=== PATIENT | female | born 1950 | race Caucasian/White ===

== ENCOUNTER 2016-06-25 11:56 | Emergency (ER) | payer MEDICARE, MEDICAID ==
[~2016-06-25] VITALS: Ht 170.2 cm; Wt 98.0 kg
[~2016-06-25 11:56] MED LIST: AMLO-512 PO; GABA-533 PO; INSLAN SQ; LEVO100 PO; LUBI24CA2 PO; OMEP10CA2; VIT D PO
[2016-06-25] MEDS ORDERED: INSU100V12 SQ (12:10)
[2016-06-25] MEDS ORDERED: INSNOV SQ (12:10)
[2016-06-25] MEDS ORDERED: IBUPROFEN 600 MG TABLET PO ONE ×2 (12:30→15:15)
[2016-06-25] MEDS ORDERED: ACETAMINOPHEN 325 MG TABLET PO ONE ×2 (12:30→15:15)
[2016-06-25 14:26] VITALS: BP 154/83
== END 2016-06-25 15:26 | disposition home or self-care (01) ==
LOC: EMS 11:59
DX: S13.4XXA Sprain of ligaments of cervical spine, initial encounter (principal); E11.9 Type 2 diabetes mellitus without complications; E78.00 Pure hypercholesterolemia, unspecified; I10 Essential (primary) hypertension; Z79.4 Long term (current) use of insulin; Y04.2XXA Assault by strike against or bumped into by another person, initial encounter; Y93.89 Activity, other specified; Y92.89 Other specified places as the place of occurrence of the external cause; Y99.8 Other external cause status
CPT/HCPCS: 72040; 82962; 99284

== ENCOUNTER 2016-08-06 14:53 | Inpatient (IN) | payer MEDICARE, MEDICAID ==
[~2016-08-06] VITALS: Ht 170.2 cm; Wt 95.3 kg
[~2016-08-06 14:53] MED LIST changes: -GABA-533 PO; -INSLAN SQ; +INSNOV SQ; +INSU100V12 SQ; -LEVO100 PO; -LUBI24CA2 PO; -OMEP10CA2; -VIT D PO
[2016-08-06 15:17] LABS: GLUCOSE,POINT OF CARE 213 MG/DL (70-110)
[2016-08-06 15:32] LABS: BASOPHILS % (AUTO) 0.3 % (0.0-2.0); EOSINOPHILS % (AUTO) 1.8 % (1.0-6.0); HEMATOCRIT 41.3 % (36-46); HEMOGLOBIN 13.1 g/dL (12.0-16.0); LYMPHOCYTES # (AUTO) 1.6 K/uL (1.0-4.8); LYMPHOCYTES % (AUTO) 26.4 % (22.0-44.0); MEAN CORPUSCULAR HEMOGLOBIN 25.4 pg (26.0-34.0); MEAN CORPUSCULAR HGB CONC 31.8 G/dL (31.0-37.0); MEAN CORPUSCULAR VOLUME 80 fL (80-100); MONOCYTES # (AUTO) 0.3 K/uL (0.1-1.0); MONOCYTES % (AUTO) 4.8 % (2.0-9.0); NEUTROPHILS % (AUTO) 66.7 % (40.0-70.0); PLATELET COUNT (AUTO) 216 K/uL (150-450); RED BLOOD CELL COUNT(AUTO) 5.17 MIL/uL (4.00-5.20); RED CELL DISTRIBUTION WIDTH 15.8 % (11.5-14.5)
[2016-08-06 15:51] LABS: ANION GAP 10 mmol/L (8-16); CARBON DIOXIDE 29 mmol/L (22-29); CHLORIDE 101 mmol/L (98-107); CREATININE 0.78 mg/dL (0.60-1.30); GLOMERULAR FILTR. RATE CALC > 60 mL/min (>60); SODIUM SERUM 140 mmol/L (136-145); UREA NITROGEN, BLOOD 12 mg/dL (7-18)
[2016-08-06 16:00] LABS: ALANINE AMINOTRANSFERASE 29 U/L (12-78); ALBUMIN 3.9 g/dL (3.4-5.0); ASPARTATE AMINOTRANSFERASE 19 U/L (15-37); BILIRUBIN,TOTAL 0.3 mg/dL (0.1-1.0); TOTAL PROTEIN, SERUM 8.3 g/dL (6.4-8.2)
[2016-08-06] MEDS ORDERED: INSULIN REGULAR, HUMAN 100 UNITS/ML SQ ONE (16:15)
[2016-08-06] MEDS ORDERED: PERMETHRIN 5% 60 GM CREAM TP ONE (16:15)
[2016-08-06] MEDS ORDERED: LORazepam 2 MG TABLET PO PRN (17:15)
[2016-08-06] MEDS ORDERED: HALOPERIDOL 5 MG TABLET PO PRN (17:15)
[2016-08-06 19:26] VITALS: BP 135/73
[2016-08-06] MEDS ORDERED: DEXTROSE 50%-WATER 25 GM/50 ML SYRINGE IVP PRN (20:45)
[2016-08-06 20:52] LABS: GLUCOSE COMMENT 1 Received Meds; GLUCOSE,POINT OF CARE 330 MG/DL (70-110)
[2016-08-06] MEDS: INSULIN ASPART 100 UNITS/ML SQ PRN (20:53)
[2016-08-06] MEDS ORDERED: INSULIN DETEMIR 100 UNITS/ML SQ SCH (21:00)
[2016-08-07 05:44] VITALS: BP 128/78
[2016-08-07 05:56] LABS: GLUCOSE COMMENT 1 Received Meds; GLUCOSE,POINT OF CARE 222 MG/DL (70-110)
[2016-08-07 06:50] LABS: CHOL/HDL RATIO 4.4 (3.9-5.7)
[2016-08-07] MEDS: INSULIN ASPART 100 UNITS/ML SQ PRN ×4 (07:25→20:33)
[2016-08-07 08:00] VITALS: BP 129/74
[2016-08-07] MEDS ORDERED: BACITRACIN 28.4 GM OINTMENT TP PRN (08:15)
[2016-08-07] MEDS ORDERED: MAG HYDROX/AL HYDROX/SIMETH ES 30 ML SUSPENSION UDCUP PO PRN (08:15)
[2016-08-07] MEDS ORDERED: IBUPROFEN 600 MG TABLET PO PRN (08:15)
[2016-08-07] MEDS ORDERED: ONDANSETRON HCL 4 MG TABLET PO PRN (08:15)
[2016-08-07] MEDS ORDERED: MAGNESIUM HYDROXIDE SUSPENSION 30 ML UDCUP PO PRN (08:15)
[2016-08-07] MEDS ORDERED: BENZOCAINE/MENTHOL LOZENGE [8 LOZENGES/PACKET] MM PRN (08:15)
[2016-08-07] MEDS ORDERED: CloNIDine HCL 0.1 MG TABLET PO PRN (08:15)
[2016-08-07] MEDS ORDERED: LOPERAMIDE HCL 2 MG CAPSULE PO PRN (08:15)
[2016-08-07] MEDS ORDERED: PETROLATUM,WHITE 71 GM JELLY TP PRN (08:15)
[2016-08-07] MEDS ORDERED: ALBUTEROL SULFATE HFA 90 MCG/PUFF 8 GM INHALER IH PRN (08:15)
[2016-08-07] MEDS: OMEPRAZOLE 20 MG CAPSULE PO SCH (08:31)
[2016-08-07] MEDS: AmLODIPine BESYLATE 10 MG TABLET PO SCH (08:31)
[2016-08-07] MEDS: DOCUSATE SODIUM 100 MG CAPSULE PO SCH (08:31)
[2016-08-07 11:21] LABS: GLUCOSE,POINT OF CARE 286 MG/DL (70-110)
[2016-08-07] MEDS: ESCITALOPRAM OXALATE 10 MG TABLET PO SCH (12:37)
[2016-08-07 16:52] LABS: GLUCOSE COMMENT 1 Received Meds; GLUCOSE,POINT OF CARE 247 MG/DL (70-110)
[2016-08-07 17:20] VITALS: BP 128/67
[2016-08-07] MEDS: SIMVASTATIN 10 MG TABLET PO SCH (20:18)
[2016-08-07] MEDS: INSULIN DETEMIR 100 UNITS/ML SQ SCH (20:23)
[2016-08-07 20:32] LABS: GLUCOSE,POINT OF CARE 338 MG/DL (70-110)
[2016-08-08 06:52] LABS: GLUCOSE,POINT OF CARE 214 MG/DL (70-110)
[2016-08-08 07:15] VITALS: BP 108/65
[2016-08-08] MEDS: INSULIN ASPART 100 UNITS/ML SQ PRN ×4 (07:19→20:35)
[2016-08-08] MEDS: OMEPRAZOLE 20 MG CAPSULE PO SCH (08:57)
[2016-08-08] MEDS: AmLODIPine BESYLATE 10 MG TABLET PO SCH (08:57)
[2016-08-08] MEDS: ESCITALOPRAM OXALATE 10 MG TABLET PO SCH (08:57)
[2016-08-08] MEDS: DOCUSATE SODIUM 100 MG CAPSULE PO SCH (08:58)
[2016-08-08 10:03] VITALS: BP 120/74
[2016-08-08 11:17] LABS: GLUCOSE,POINT OF CARE 275 MG/DL (70-110)
[2016-08-08 17:07] LABS: GLUCOSE COMMENT 1 Received Meds; GLUCOSE,POINT OF CARE 244 MG/DL (70-110)
[2016-08-08 17:20] VITALS: BP 127/70
[2016-08-08] MEDS: SIMVASTATIN 10 MG TABLET PO SCH (20:21)
[2016-08-08] MEDS: ACETAMINOPHEN 325 MG TABLET PO PRN (20:24)
[2016-08-08 20:27] LABS: GLUCOSE,POINT OF CARE 369 MG/DL (70-110)
[2016-08-08] MEDS: INSULIN DETEMIR 100 UNITS/ML SQ SCH (20:34)
[2016-08-09 05:37] LABS: GLUCOSE COMMENT 1 Received Meds; GLUCOSE,POINT OF CARE 226 MG/DL (70-110)
[2016-08-09] MEDS: AmLODIPine BESYLATE 10 MG TABLET PO SCH (08:09)
[2016-08-09] MEDS: DOCUSATE SODIUM 100 MG CAPSULE PO SCH (08:09)
[2016-08-09] MEDS: OMEPRAZOLE 20 MG CAPSULE PO SCH (08:10)
[2016-08-09] MEDS: ESCITALOPRAM OXALATE 10 MG TABLET PO SCH (08:10)
[2016-08-09 10:20] VITALS: BP 134/86
[2016-08-09 11:46] LABS: GLUCOSE COMMENT 1 Received Meds; GLUCOSE,POINT OF CARE 315 MG/DL (70-110)
[2016-08-09] MEDS: INSULIN ASPART 100 UNITS/ML SQ PRN ×3 (11:57→20:40)
[2016-08-09 18:41] LABS: GLUCOSE,POINT OF CARE 335 MG/DL (70-110)
[2016-08-09 19:32] VITALS: BP 107/68
[2016-08-09] MEDS: SIMVASTATIN 10 MG TABLET PO SCH (20:25)
[2016-08-09] MEDS: INSULIN DETEMIR 100 UNITS/ML SQ SCH (20:39)
[2016-08-09 21:12] LABS: GLUCOSE COMMENT 1 Received Meds; GLUCOSE,POINT OF CARE 309 MG/DL (70-110)
[2016-08-10 05:32] LABS: GLUCOSE,POINT OF CARE 195 MG/DL (70-110)
[2016-08-10] MEDS: INSULIN ASPART 100 UNITS/ML SQ PRN ×4 (06:57→21:03)
[2016-08-10 08:00] VITALS: BP 118/68
[2016-08-10] MEDS: ESCITALOPRAM OXALATE 10 MG TABLET PO SCH (08:18)
[2016-08-10] MEDS: DOCUSATE SODIUM 100 MG CAPSULE PO SCH (08:18)
[2016-08-10] MEDS: OMEPRAZOLE 20 MG CAPSULE PO SCH (08:18)
[2016-08-10] MEDS: AmLODIPine BESYLATE 10 MG TABLET PO SCH (08:18)
[2016-08-10 11:22] LABS: GLUCOSE COMMENT 1 Received Meds; GLUCOSE,POINT OF CARE 360 MG/DL (70-110)
[2016-08-10 16:42] LABS: GLUCOSE,POINT OF CARE 268 MG/DL (70-110)
[2016-08-10] MEDS: SIMVASTATIN 10 MG TABLET PO SCH (20:13)
[2016-08-10 20:25] VITALS: BP 146/73
[2016-08-10 20:43] LABS: GLUCOSE COMMENT 1 Received Meds; GLUCOSE,POINT OF CARE 288 MG/DL (70-110)
[2016-08-10] MEDS: INSULIN DETEMIR 100 UNITS/ML SQ SCH (21:02)
[2016-08-11 01:30] VITALS: BP 103/70
[2016-08-11 05:57] LABS: GLUCOSE,POINT OF CARE 192 MG/DL (70-110)
[2016-08-11] MEDS: INSULIN ASPART 100 UNITS/ML SQ PRN ×4 (06:47→21:16)
[2016-08-11 08:00] VITALS: BP 108/56
[2016-08-11] MEDS: OMEPRAZOLE 20 MG CAPSULE PO SCH (08:18)
[2016-08-11] MEDS: DOCUSATE SODIUM 100 MG CAPSULE PO SCH (08:18)
[2016-08-11] MEDS: ESCITALOPRAM OXALATE 10 MG TABLET PO SCH (08:18)
[2016-08-11] MEDS: AmLODIPine BESYLATE 10 MG TABLET PO SCH (08:18)
[2016-08-11 11:12] LABS: GLUCOSE COMMENT 1 Received Meds; GLUCOSE,POINT OF CARE 292 MG/DL (70-110)
[2016-08-11 16:46] LABS: GLUCOSE COMMENT 1 Received Meds; GLUCOSE,POINT OF CARE 239 MG/DL (70-110)
[2016-08-11] MEDS: SIMVASTATIN 10 MG TABLET PO SCH (20:18)
[2016-08-11 20:30] VITALS: BP 105/58
[2016-08-11 20:37] LABS: GLUCOSE COMMENT 1 Received Meds; GLUCOSE,POINT OF CARE 259 MG/DL (70-110)
[2016-08-11] MEDS: ACETAMINOPHEN 325 MG TABLET PO PRN (20:51)
[2016-08-11] MEDS: INSULIN DETEMIR 100 UNITS/ML SQ SCH (21:15)
[2016-08-12 05:22] LABS: GLUCOSE,POINT OF CARE 252 MG/DL (70-110)
[2016-08-12] MEDS: INSULIN ASPART 100 UNITS/ML SQ PRN ×5 (06:43→20:57)
[2016-08-12] MEDS: DOCUSATE SODIUM 100 MG CAPSULE PO SCH (08:50)
[2016-08-12] MEDS: OMEPRAZOLE 20 MG CAPSULE PO SCH (08:50)
[2016-08-12] MEDS: AmLODIPine BESYLATE 10 MG TABLET PO SCH (08:50)
[2016-08-12] MEDS: SIMVASTATIN 10 MG TABLET PO SCH ×2 (08:51→20:46)
[2016-08-12] MEDS: ESCITALOPRAM OXALATE 10 MG TABLET PO SCH (08:51)
[2016-08-12 11:57] LABS: GLUCOSE COMMENT 1 Received Meds; GLUCOSE,POINT OF CARE 215 MG/DL (70-110)
[2016-08-12 13:23] VITALS: BP 136/76
[2016-08-12 16:32] LABS: GLUCOSE COMMENT 1 Received Meds; GLUCOSE,POINT OF CARE 281 MG/DL (70-110)
[2016-08-12 17:05] VITALS: BP 134/75
[2016-08-12 20:52] LABS: GLUCOSE COMMENT 1 Received Meds; GLUCOSE,POINT OF CARE 264 MG/DL (70-110)
[2016-08-12 21:00] VITALS: BP 132/75
[2016-08-12] MEDS ORDERED: INSULIN DETEMIR 100 UNITS/ML SQ SCH (21:00)
[2016-08-12] MEDS: ACETAMINOPHEN 325 MG TABLET PO PRN (21:03)
[2016-08-13 05:53] LABS: GLUCOSE COMMENT 1 Received Meds; GLUCOSE,POINT OF CARE 225 MG/DL (70-110)
[2016-08-13] MEDS: INSULIN ASPART 100 UNITS/ML SQ PRN ×4 (06:49→21:25)
[2016-08-13 08:10] VITALS: BP 125/73
[2016-08-13] MEDS: LISINOPRIL 5 MG TABLET PO SCH (08:56)
[2016-08-13] MEDS: ESCITALOPRAM OXALATE 10 MG TABLET PO SCH (08:56)
[2016-08-13] MEDS: DOCUSATE SODIUM 100 MG CAPSULE PO SCH (08:56)
[2016-08-13] MEDS: OMEPRAZOLE 20 MG CAPSULE PO SCH (08:56)
[2016-08-13 12:36] LABS: GLUCOSE,POINT OF CARE 336 MG/DL (70-110)
[2016-08-13] MEDS: ACETAMINOPHEN 325 MG TABLET PO PRN ×2 (15:49→21:30)
[2016-08-13 16:00] VITALS: BP 135/79
[2016-08-13 17:23] LABS: GLUCOSE COMMENT 1 Received Meds; GLUCOSE,POINT OF CARE 243 MG/DL (70-110)
[2016-08-13 20:30] VITALS: BP 128/78
[2016-08-13] MEDS: SIMVASTATIN 10 MG TABLET PO SCH (20:52)
[2016-08-13] MEDS ORDERED: INSULIN DETEMIR 100 UNITS/ML SQ SCH (21:00)
[2016-08-13 21:12] LABS: GLUCOSE COMMENT 1 Received Meds; GLUCOSE,POINT OF CARE 308 MG/DL (70-110)
[2016-08-14] MEDS: ZOLPIDEM TARTRATE 10 MG TABLET PO PRN (00:40)
[2016-08-14 00:57] VITALS: BP 116/72
[2016-08-14 05:52] LABS: GLUCOSE,POINT OF CARE 231 MG/DL (70-110)
[2016-08-14] MEDS: INSULIN ASPART 100 UNITS/ML SQ PRN ×4 (06:50→21:06)
[2016-08-14 07:39] LABS: CHOL/HDL RATIO 3.6 (3.9-5.7); CREATINE KINASE, TOTAL 34 U/L (26-192)
[2016-08-14 08:11] LABS: HEMOGLOBIN A1C 7.3 % (4.5-6.2)
[2016-08-14] MEDS: DOCUSATE SODIUM 100 MG CAPSULE PO SCH (08:25)
[2016-08-14] MEDS: OMEPRAZOLE 20 MG CAPSULE PO SCH (08:25)
[2016-08-14] MEDS: LISINOPRIL 5 MG TABLET PO SCH (08:25)
[2016-08-14] MEDS: ESCITALOPRAM OXALATE 10 MG TABLET PO SCH (08:25)
[2016-08-14 08:30] VITALS: BP 123/66
[2016-08-14 11:11] LABS: GLUCOSE,POINT OF CARE 256 MG/DL (70-110)
[2016-08-14] MEDS: ACETAMINOPHEN 325 MG TABLET PO PRN (16:31)
[2016-08-14 16:32] VITALS: BP 119/66
[2016-08-14 16:57] LABS: GLUCOSE COMMENT 1 Received Meds; GLUCOSE,POINT OF CARE 231 MG/DL (70-110)
[2016-08-14] MEDS: SIMVASTATIN 10 MG TABLET PO SCH (20:13)
[2016-08-14 20:52] LABS: GLUCOSE COMMENT 1 Received Meds; GLUCOSE,POINT OF CARE 300 MG/DL (70-110)
[2016-08-14] MEDS: INSULIN DETEMIR 100 UNITS/ML SQ SCH (21:05)
[2016-08-15 05:52] LABS: GLUCOSE,POINT OF CARE 141 MG/DL (70-110)
[2016-08-15] MEDS: INSULIN ASPART 100 UNITS/ML SQ PRN ×4 (06:49→20:46)
[2016-08-15 08:30] VITALS: BP 118/60
[2016-08-15] MEDS: DOCUSATE SODIUM 100 MG CAPSULE PO SCH (08:42)
[2016-08-15] MEDS: OMEPRAZOLE 20 MG CAPSULE PO SCH (08:42)
[2016-08-15] MEDS: ESCITALOPRAM OXALATE 10 MG TABLET PO SCH (08:42)
[2016-08-15] MEDS: LISINOPRIL 5 MG TABLET PO SCH (08:43)
[2016-08-15 11:06] LABS: GLUCOSE,POINT OF CARE 242 MG/DL (70-110)
[2016-08-15] MEDS ORDERED: ESCI10TA PO (13:32)
[2016-08-15] MEDS ORDERED: DSS100 PO (13:39)
[2016-08-15] MEDS ORDERED: LISI-660 PO (13:39)
[2016-08-15] MEDS ORDERED: SIMV-259 PO (13:44)
[2016-08-15] MEDS ORDERED: OMEP20 PO (13:44)
[2016-08-15 14:18] LABS: HEPATITIS Bs ANTIGEN SCREEN P Negative (Negative); HEPATITIS C AB SCREEN <0.1 s/co ratio (0.0-0.9)
[2016-08-15] MEDS ORDERED: METF500T4 PO (15:31)
[2016-08-15] MEDS: ACETAMINOPHEN 325 MG TABLET PO PRN (16:36)
[2016-08-15] MEDS: MetFORMIN HCL 500 MG TABLET PO SCH (16:36)
[2016-08-15 16:49] VITALS: BP 129/99
[2016-08-15 17:27] LABS: GLUCOSE,POINT OF CARE 297 MG/DL (70-110)
[2016-08-15] MEDS: SIMVASTATIN 10 MG TABLET PO SCH (20:20)
[2016-08-15 20:37] LABS: GLUCOSE COMMENT 1 Received Meds; GLUCOSE,POINT OF CARE 362 MG/DL (70-110)
[2016-08-15] MEDS: INSULIN DETEMIR 100 UNITS/ML SQ SCH (20:45)
[2016-08-15] MEDS: ZOLPIDEM TARTRATE 10 MG TABLET PO PRN (21:33)
[2016-08-16 06:07] LABS: GLUCOSE,POINT OF CARE 152 MG/DL (70-110)
[2016-08-16] MEDS: INSULIN ASPART 100 UNITS/ML SQ PRN (06:58)
[2016-08-16] MEDS: MetFORMIN HCL 500 MG TABLET PO SCH (06:58)
[2016-08-16 08:16] VITALS: BP 119/71
[2016-08-16] MEDS: DOCUSATE SODIUM 100 MG CAPSULE PO SCH (08:19)
[2016-08-16] MEDS: OMEPRAZOLE 20 MG CAPSULE PO SCH (08:19)
[2016-08-16] MEDS: ESCITALOPRAM OXALATE 10 MG TABLET PO SCH (08:19)
[2016-08-16] MEDS: LISINOPRIL 5 MG TABLET PO SCH (09:03)
== END 2016-08-16 10:30 | disposition home or self-care (01) | DRG 885 ==
LOC: EMS 14:56 → 3EX 18:20
DX: F33.2 Major depressive disorder, recurrent severe without psychotic features (principal); R45.851 Suicidal ideations; I10 Essential (primary) hypertension; E78.5 Hyperlipidemia, unspecified; E11.65 Type 2 diabetes mellitus with hyperglycemia; E78.00 Pure hypercholesterolemia, unspecified; E11.40 Type 2 diabetes mellitus with diabetic neuropathy, unspecified; M19.90 Unspecified osteoarthritis, unspecified site; F42.9 Obsessive-compulsive disorder, unspecified; E66.9 Obesity, unspecified; K21.9 Gastro-esophageal reflux disease without esophagitis; G47.00 Insomnia, unspecified; I95.9 Hypotension, unspecified; Z79.4 Long term (current) use of insulin; Z79.899 Other long term (current) drug therapy; Z85.819 Personal history of malignant neoplasm of unspecified site of lip, oral cavity, and pharynx; Z87.42 Personal history of other diseases of the female genital tract; Z98.51 Tubal ligation status; Z91.5 Personal history of self-harm; Z90.49 Acquired absence of other specified parts of digestive tract; Z68.34 Body mass index [BMI] 34.0-34.9, adult; Z83.3 Family history of diabetes mellitus; Z82.49 Family history of ischemic heart disease and other diseases of the circulatory system; Z81.1 Family history of alcohol abuse and dependence
CPT/HCPCS: 80074; 82306; 82607; 82746; 82962; 83036; 83735; 84439; 96372; 99285; G0480; J1815

== ENCOUNTER 2016-08-22 10:30 | Emergency (ER) | payer MEDICARE, MEDICAID ==
[~2016-08-22] VITALS: Ht 170.2 cm; Wt 95.5 kg
[~2016-08-22 10:30] MED LIST changes: -AMLO-512 PO; +DSS100 PO; +ESCI10TA PO; -INSNOV SQ; +LISI-660 PO; +METF500T4 PO; +OMEP20 PO; +SIMV-259 PO
[2016-08-22] MEDS ORDERED: METO25 PO (10:59)
[2016-08-22] MEDS ORDERED: ACET500C4 PO (10:59)
[2016-08-22] MEDS ORDERED: INSNOV SQ (10:59)
[2016-08-22] MEDS ORDERED: LEVO100 PO (10:59)
[2016-08-22] MEDS ORDERED: AMLO-512 PO (10:59)
[2016-08-22] MEDS ORDERED: ASPI-1093 PO (10:59)
[2016-08-22] MEDS ORDERED: PREG50 PO (10:59)
[2016-08-22] MEDS ORDERED: LUBI24CA2 PO (10:59)
[2016-08-22] MEDS ORDERED: KETOROLAC TROMETHAMINE 60 MG/2 ML VIAL IM ONE (11:45)
[2016-08-22] MEDS ORDERED: ACETAMINOPHEN 500 MG TABLET PO ONE (11:45)
[2016-08-22] MEDS ORDERED: CIPROFLOXACIN HCL 250 MG TABLET PO ONE (12:00)
[2016-08-22 12:15] VITALS: BP 137/76
== END 2016-08-22 12:30 | disposition home or self-care (01) ==
LOC: EMS 10:33
DX: S80.02XA Contusion of left knee, initial encounter (principal); S50.02XA Contusion of left elbow, initial encounter; N39.0 Urinary tract infection, site not specified; I10 Essential (primary) hypertension; E78.00 Pure hypercholesterolemia, unspecified; E11.9 Type 2 diabetes mellitus without complications; Z79.4 Long term (current) use of insulin; Z79.82 Long term (current) use of aspirin; W18.39XA Other fall on same level, initial encounter; Y93.89 Activity, other specified; Y92.89 Other specified places as the place of occurrence of the external cause; Y99.8 Other external cause status
CPT/HCPCS: 82962; 96372; 99283; J1885

== ENCOUNTER 2017-06-22 17:23 | Inpatient (IN) | payer MEDICARE, MEDICAID ==
[~2017-06-22] VITALS: Ht 170.2 cm; Wt 100.4 kg
[~2017-06-22 17:23] MED LIST changes: +ACET500C4 PO; +AMLO-512 PO; +ASPI-1182 PO; +INSNOV SQ; +LEVO100 PO; +LUBI24CA2 PO; +METO25 PO; +PREG50 PO
[2017-06-22 18:54] LABS: BASOPHILS % (AUTO) 0.3 % (0.0-2.0); EOSINOPHILS % (AUTO) 1.6 % (1.0-6.0); HEMATOCRIT 36.9 % (36-46); HEMOGLOBIN 12.2 g/dL (12.0-16.0); LYMPHOCYTES # (AUTO) 1.2 K/uL (1.0-4.8); LYMPHOCYTES % (AUTO) 21.8 % (22.0-44.0); MEAN CORPUSCULAR HEMOGLOBIN 26.4 pg (26.0-34.0); MEAN CORPUSCULAR HGB CONC 33.1 G/dL (31.0-37.0); MEAN CORPUSCULAR VOLUME 80 fL (80-100); MONOCYTES # (AUTO) 0.3 K/uL (0.1-1.0); MONOCYTES % (AUTO) 6.2 % (2.0-9.0); NEUTROPHILS # (AUTO) 3.9 K/uL (1.8-7.7); NEUTROPHILS % (AUTO) 70.1 % (40.0-70.0); PLATELET COUNT (AUTO) 171 K/uL (150-450); RED BLOOD CELL COUNT(AUTO) 4.63 MIL/uL (4.00-5.20); RED CELL DISTRIBUTION WIDTH 16.8 % (11.5-14.5)
[2017-06-22 19:02] LABS: ANION GAP 7 mmol/L (8-16); CARBON DIOXIDE 27 mmol/L (22-29); CHLORIDE 100 mmol/L (98-107); CREATININE 0.78 mg/dL (0.60-1.30); GLOMERULAR FILTR. RATE CALC > 60 mL/min (>60); GLUCOSE,RANDOM 392 mg/dL (70-110); SODIUM SERUM 134 mmol/L (136-145); UREA NITROGEN, BLOOD 8 mg/dL (7-18)
[2017-06-22 19:10] LABS: ALANINE AMINOTRANSFERASE 25 U/L (12-78); ALBUMIN 3.7 g/dL (3.4-5.0); ALKALINE PHOSPHATASE 102 U/L (46-116); ASPARTATE AMINOTRANSFERASE 19 U/L (15-37); BILIRUBIN,TOTAL 0.4 mg/dL (0.1-1.0); TOTAL PROTEIN, SERUM 7.8 g/dL (6.4-8.2)
[2017-06-22] MEDS ORDERED: RISP1 PO (19:30)
[2017-06-22 19:47] LABS: GLUCOSE,POINT OF CARE 357 MG/DL (70-110)
[2017-06-22] MEDS ORDERED: QUEtiapine FUMARATE 25 MG TABLET PO PRN (20:00)
[2017-06-22] MEDS ORDERED: LORazepam 0.5 MG TABLET PO PRN (20:00)
[2017-06-22] MEDS ORDERED: ZOLPIDEM TARTRATE 10 MG TABLET PO PRN (20:00)
[2017-06-22] MEDS ORDERED: INSULIN REGULAR, HUMAN 100 UNITS/ML SQ ONE (20:15)
[2017-06-22] MEDS ORDERED: GuaiFENesin/D-METHORPHAN/PHENYLEPH 5 ML LIQUID ORAL.SYG PO ONE (20:45)
[2017-06-22 20:48] LABS: AMPHET/METH SCREEN,URINE NEGATIVE (NEGATIVE); BARBITURATE SCREEN, URINE NEGATIVE (NEGATIVE); BENZODIAZEPINES SCREEN,URINE NEGATIVE (NEGATIVE); CANNABINOID SCREEN,URINE NEGATIVE (NEGATIVE); COCAINE SCREEN,URINE NEGATIVE (NEGATIVE); METHADONE SCREEN, URINE NEGATIVE (NEGATIVE); OPIATE SCREEN,URINE NEGATIVE (NEGATIVE)
[2017-06-22 20:49] LABS: PHENCYCLIDINE SCREEN,URINE NEGATIVE (NEGATIVE)
[2017-06-22 21:37] LABS: GLUCOSE,POINT OF CARE 257 MG/DL (70-110)
[2017-06-22 22:16] VITALS: BP 130/78
[2017-06-22] MEDS ORDERED: PETROLATUM,WHITE 71 GM JELLY TP PRN (23:15)
[2017-06-22] MEDS ORDERED: DEXTROSE 50%-WATER 25 GM/50 ML SYRINGE IVP PRN (23:15)
[2017-06-22] MEDS ORDERED: BACITRACIN 28.4 GM OINTMENT TP PRN (23:15)
[2017-06-22] MEDS ORDERED: ACETAMINOPHEN 325 MG TABLET PO PRN (23:15)
[2017-06-22] MEDS ORDERED: LOPERAMIDE HCL 2 MG CAPSULE PO PRN (23:15)
[2017-06-22] MEDS ORDERED: ALBUTEROL SULFATE HFA 90 MCG/PUFF 8 GM INHALER IH PRN (23:15)
[2017-06-22] MEDS ORDERED: MAGNESIUM HYDROXIDE SUSPENSION 30 ML UDCUP PO PRN (23:15)
[2017-06-22] MEDS ORDERED: CloNIDine HCL 0.1 MG TABLET PO PRN (23:15)
[2017-06-22] MEDS ORDERED: ONDANSETRON HCL 4 MG TABLET PO PRN (23:15)
[2017-06-22] MEDS ORDERED: MAG HYDROX/AL HYDROX/SIMETH ES 30 ML SUSPENSION UDCUP PO PRN (23:15)
[2017-06-22] MEDS ORDERED: BENZOCAINE/MENTHOL LOZENGE [8 LOZENGES/PACKET] MM PRN (23:30)
[2017-06-23 03:15] VITALS: BP 95/65
[2017-06-23 05:37] LABS: GLUCOMETER DEV NAME(LOC) 3EI B; GLUCOSE,POINT OF CARE 233 MG/DL (70-110)
[2017-06-23 05:38] VITALS: BP 127/85
[2017-06-23] MEDS: IBUPROFEN 600 MG TABLET PO PRN ×2 (05:45→16:31)
[2017-06-23 05:56] VITALS: BP 127/85
[2017-06-23 06:01] LABS: BASOPHILS % (AUTO) 0.3 % (0.0-2.0); EOSINOPHILS % (AUTO) 1.9 % (1.0-6.0); HEMATOCRIT 36.5 % (36-46); HEMOGLOBIN 12.2 g/dL (12.0-16.0); LYMPHOCYTES # (AUTO) 1.1 K/uL (1.0-4.8); MEAN CORPUSCULAR HEMOGLOBIN 26.4 pg (26.0-34.0); MEAN CORPUSCULAR HGB CONC 33.5 G/dL (31.0-37.0); MEAN CORPUSCULAR VOLUME 79 fL (80-100); MONOCYTES # (AUTO) 0.3 K/uL (0.1-1.0); MONOCYTES % (AUTO) 6.4 % (2.0-9.0); NEUTROPHILS # (AUTO) 3.6 K/uL (1.8-7.7); NEUTROPHILS % (AUTO) 69.4 % (40.0-70.0); PLATELET COUNT (AUTO) 160 K/uL (150-450); RED BLOOD CELL COUNT(AUTO) 4.62 MIL/uL (4.00-5.20); RED CELL DISTRIBUTION WIDTH 16.8 % (11.5-14.5)
[2017-06-23 06:34] LABS: ALANINE AMINOTRANSFERASE 21 U/L (12-78); ALBUMIN 3.4 g/dL (3.4-5.0); ALKALINE PHOSPHATASE 95 U/L (46-116); ANION GAP 6 mmol/L (8-16); ASPARTATE AMINOTRANSFERASE 20 U/L (15-37); BILIRUBIN,TOTAL 0.4 mg/dL (0.1-1.0); CARBON DIOXIDE 30 mmol/L (22-29); CHLORIDE 103 mmol/L (98-107); CHOL/HDL RATIO 4.6 (3.9-5.7); CHOLESTEROL 189 mg/dL (131-200); CREATININE 0.53 mg/dL (0.60-1.30); FREE T4 (FREE THYROXINE) 0.59 ng/dL (0.76-1.46); GLOMERULAR FILTR. RATE CALC > 60 mL/min (>60); GLUCOSE,RANDOM 257 mg/dL (70-110); HDL CHOLESTEROL 41 mg/dL (40-60); LDL CHOL (CALC.) 127 mg/dL (0-130); POTASSIUM 4.3 mmol/L (3.5-5.1); SODIUM SERUM 139 mmol/L (136-145); TOTAL PROTEIN, SERUM 7.4 g/dL (6.4-8.2); TRIGLYCERIDES 106 mg/dL (15-150); UREA NITROGEN, BLOOD 8 mg/dL (7-18)
[2017-06-23] MEDS: INSULIN LISPRO 100 UNITS/ML SQ PRN ×4 (06:44→20:38)
[2017-06-23] MEDS: MetFORMIN HCL 500 MG TABLET PO SCH ×2 (07:11→17:33)
[2017-06-23 07:58] LABS: HEMOGLOBIN A1C 8.8 % (4.5-6.2)
[2017-06-23] MEDS: DOCUSATE SODIUM 100 MG CAPSULE PO SCH (08:17)
[2017-06-23 08:20] VITALS: BP 159/84
[2017-06-23] MEDS: OMEPRAZOLE 20 MG CAPSULE PO SCH (08:20)
[2017-06-23] MEDS: LISINOPRIL 5 MG TABLET PO SCH (08:23)
[2017-06-23] MEDS ORDERED: INSULIN GLARGINE,HUM.REC.ANLOG 100 UNITS/ML SQ SCH (09:00)
[2017-06-23] MEDS ORDERED: OMEPRAZOLE 20 MG CAPSULE PO SCH (09:00)
[2017-06-23 09:18] LABS: GLUCOMETER DEV NAME(LOC) 3EX 1; GLUCOSE,POINT OF CARE 310 MG/DL (70-110)
[2017-06-23] MEDS: INSULIN GLARGINE,HUM.REC.ANLOG 100 UNITS/ML SQ SCH ×2 (10:07→20:37)
[2017-06-23] MEDS: LEVOTHYROXINE SODIUM 100 MCG TABLET PO SCH (10:14)
[2017-06-23 12:13] LABS: GLUCOMETER DEV NAME(LOC) 3EX 1; GLUCOSE,POINT OF CARE 243 MG/DL (70-110)
[2017-06-23 16:27] LABS: GLUCOMETER DEV NAME(LOC) 3EX 1; GLUCOSE,POINT OF CARE 235 MG/DL (70-110)
[2017-06-23 16:31] VITALS: BP 149/79
[2017-06-23 17:31] VITALS: BP 148/82
[2017-06-23] MEDS: SIMVASTATIN 10 MG TABLET PO SCH (20:09)
[2017-06-23 20:12] LABS: GLUCOMETER DEV NAME(LOC) 3EX 1; GLUCOSE,POINT OF CARE 248 MG/DL (70-110)
[2017-06-24 06:02] LABS: GLUCOMETER DEV NAME(LOC) 3EI B; GLUCOSE,POINT OF CARE 222 MG/DL (70-110)
[2017-06-24] MEDS: LEVOTHYROXINE SODIUM 100 MCG TABLET PO SCH (07:03)
[2017-06-24] MEDS: MetFORMIN HCL 500 MG TABLET PO SCH ×2 (07:03→17:25)
[2017-06-24] MEDS: INSULIN LISPRO 100 UNITS/ML SQ PRN ×3 (07:04→21:32)
[2017-06-24 07:06] VITALS: BP 141/81
[2017-06-24] MEDS: LISINOPRIL 5 MG TABLET PO SCH (08:33)
[2017-06-24] MEDS: OMEPRAZOLE 20 MG CAPSULE PO SCH (08:33)
[2017-06-24] MEDS: DOCUSATE SODIUM 100 MG CAPSULE PO SCH (08:33)
[2017-06-24] MEDS: INSULIN GLARGINE,HUM.REC.ANLOG 100 UNITS/ML SQ SCH ×2 (08:34→21:31)
[2017-06-24 09:35] VITALS: BP 120/70
[2017-06-24] MEDS: IBUPROFEN 600 MG TABLET PO PRN (09:35)
[2017-06-24 10:35] VITALS: BP 115/75
[2017-06-24 12:08] LABS: GLUCOMETER DEV NAME(LOC) 3EX 1; GLUCOSE,POINT OF CARE 279 MG/DL (70-110)
[2017-06-24 16:13] LABS: GLUCOMETER DEV NAME(LOC) 3EX 1; GLUCOSE,POINT OF CARE 123 MG/DL (70-110)
[2017-06-24 16:32] VITALS: BP 135/93
[2017-06-24] MEDS: SIMVASTATIN 10 MG TABLET PO SCH (21:31)
[2017-06-24 21:32] LABS: GLUCOMETER DEV NAME(LOC) 3EX 1; GLUCOSE,POINT OF CARE 149 MG/DL (70-110)
[2017-06-25 06:07] LABS: GLUCOMETER DEV NAME(LOC) 3EI B; GLUCOSE,POINT OF CARE 158 MG/DL (70-110)
[2017-06-25] MEDS: LEVOTHYROXINE SODIUM 100 MCG TABLET PO SCH (07:08)
[2017-06-25] MEDS: MetFORMIN HCL 500 MG TABLET PO SCH ×2 (07:08→17:01)
[2017-06-25] MEDS: INSULIN LISPRO 100 UNITS/ML SQ PRN ×3 (07:10→21:11)
[2017-06-25] MEDS: OMEPRAZOLE 20 MG CAPSULE PO SCH (08:21)
[2017-06-25] MEDS: DOCUSATE SODIUM 100 MG CAPSULE PO SCH (08:21)
[2017-06-25] MEDS: LISINOPRIL 5 MG TABLET PO SCH (08:21)
[2017-06-25] MEDS: FLUoxetine HCL 10 MG CAPSULE PO SCH (08:21)
[2017-06-25] MEDS: INSULIN GLARGINE,HUM.REC.ANLOG 100 UNITS/ML SQ SCH ×2 (08:40→21:11)
[2017-06-25 10:03] VITALS: BP 116/68
[2017-06-25 11:48] LABS: GLUCOMETER DEV NAME(LOC) 3EX 1; GLUCOSE,POINT OF CARE 131 MG/DL (70-110)
[2017-06-25] MEDS: IBUPROFEN 600 MG TABLET PO PRN ×2 (13:03→19:27)
[2017-06-25 13:04] VITALS: BP 120/83
[2017-06-25 16:27] LABS: GLUCOMETER DEV NAME(LOC) 3EX 1; GLUCOSE,POINT OF CARE 171 MG/DL (70-110)
[2017-06-25 18:07] VITALS: BP 153/79
[2017-06-25 19:27] VITALS: BP 154/94
[2017-06-25 20:27] VITALS: BP 138/78
[2017-06-25] MEDS: SIMVASTATIN 10 MG TABLET PO SCH (20:46)
[2017-06-25] MEDS: ARIPiprazole 5 MG TABLET PO SCH (20:46)
[2017-06-25 20:57] LABS: GLUCOMETER DEV NAME(LOC) 3EX 1; GLUCOSE,POINT OF CARE 228 MG/DL (70-110)
[2017-06-26 05:37] LABS: GLUCOMETER DEV NAME(LOC) 3EI B; GLUCOSE,POINT OF CARE 209 MG/DL (70-110)
[2017-06-26] MEDS: LEVOTHYROXINE SODIUM 100 MCG TABLET PO SCH (07:09)
[2017-06-26] MEDS: MetFORMIN HCL 500 MG TABLET PO SCH ×2 (07:10→17:11)
[2017-06-26] MEDS: INSULIN LISPRO 100 UNITS/ML SQ PRN ×4 (07:16→20:25)
[2017-06-26] MEDS: DOCUSATE SODIUM 100 MG CAPSULE PO SCH (08:46)
[2017-06-26] MEDS: FLUoxetine HCL 10 MG CAPSULE PO SCH (08:46)
[2017-06-26] MEDS: OMEPRAZOLE 20 MG CAPSULE PO SCH (08:46)
[2017-06-26] MEDS: LISINOPRIL 5 MG TABLET PO SCH (08:47)
[2017-06-26 09:00] VITALS: BP 126/75
[2017-06-26 10:03] LABS: GLUCOMETER DEV NAME(LOC) 3EX 1; GLUCOSE,POINT OF CARE 255 MG/DL (70-110)
[2017-06-26] MEDS: INSULIN GLARGINE,HUM.REC.ANLOG 100 UNITS/ML SQ SCH ×2 (10:04→20:22)
[2017-06-26 11:43] LABS: GLUCOMETER DEV NAME(LOC) 3EX 1; GLUCOSE,POINT OF CARE 252 MG/DL (70-110)
[2017-06-26 17:32] VITALS: BP 135/70
[2017-06-26] MEDS: IBUPROFEN 600 MG TABLET PO PRN (17:34)
[2017-06-26] MEDS: ARIPiprazole 5 MG TABLET PO SCH (20:09)
[2017-06-26] MEDS: SIMVASTATIN 10 MG TABLET PO SCH (20:09)
[2017-06-26 21:02] LABS: GLUCOMETER DEV NAME(LOC) 3EX 1; GLUCOSE,POINT OF CARE 208 MG/DL (70-110)
[2017-06-26 21:02] LABS: GLUCOMETER DEV NAME(LOC) 3EX 1; GLUCOSE,POINT OF CARE 212 MG/DL (70-110)
[2017-06-27 05:28] LABS: GLUCOMETER DEV NAME(LOC) 3EI B; GLUCOSE,POINT OF CARE 151 MG/DL (70-110)
[2017-06-27] MEDS: INSULIN LISPRO 100 UNITS/ML SQ PRN ×2 (07:10→12:01)
[2017-06-27] MEDS: LEVOTHYROXINE SODIUM 100 MCG TABLET PO SCH (07:12)
[2017-06-27] MEDS: IBUPROFEN 600 MG TABLET PO PRN (07:17)
[2017-06-27] MEDS: MetFORMIN HCL 500 MG TABLET PO SCH (07:17)
[2017-06-27 09:00] VITALS: BP 116/88
[2017-06-27] MEDS: OMEPRAZOLE 20 MG CAPSULE PO SCH (09:21)
[2017-06-27] MEDS: LISINOPRIL 5 MG TABLET PO SCH (09:22)
[2017-06-27] MEDS: DOCUSATE SODIUM 100 MG CAPSULE PO SCH (09:22)
[2017-06-27] MEDS: FLUoxetine HCL 10 MG CAPSULE PO SCH (09:22)
[2017-06-27 09:48] LABS: GLUCOMETER DEV NAME(LOC) 3EX 1; GLUCOSE,POINT OF CARE 234 MG/DL (70-110)
[2017-06-27] MEDS: INSULIN GLARGINE,HUM.REC.ANLOG 100 UNITS/ML SQ SCH (09:51)
[2017-06-27] MEDS ORDERED: ARIP5TAB8 PO (11:18)
[2017-06-27] MEDS ORDERED: DSS100 PO (11:32)
[2017-06-27] MEDS ORDERED: PROZ10 PO (11:32)
[2017-06-27] MEDS ORDERED: INSLAN SQ (11:32)
[2017-06-27 11:48] LABS: GLUCOMETER DEV NAME(LOC) 3EX 1; GLUCOSE,POINT OF CARE 145 MG/DL (70-110)
== END 2017-06-27 15:00 | disposition home or self-care (01) | DRG 885 ==
LOC: EMS 17:24 → 3EX 21:30
PROVIDERS: ADMIT Psychiatry & Neurology Psychiatry; ATTEND Psychiatry & Neurology Psychiatry
DX: F25.0 Schizoaffective disorder, bipolar type (principal); E11.40 Type 2 diabetes mellitus with diabetic neuropathy, unspecified; R45.851 Suicidal ideations; E11.65 Type 2 diabetes mellitus with hyperglycemia; E03.9 Hypothyroidism, unspecified; E66.9 Obesity, unspecified; E78.00 Pure hypercholesterolemia, unspecified; E78.5 Hyperlipidemia, unspecified; F41.9 Anxiety disorder, unspecified; F60.9 Personality disorder, unspecified; G47.00 Insomnia, unspecified; I10 Essential (primary) hypertension; K21.9 Gastro-esophageal reflux disease without esophagitis; M19.90 Unspecified osteoarthritis, unspecified site; Z85.819 Personal history of malignant neoplasm of unspecified site of lip, oral cavity, and pharynx; Z81.1 Family history of alcohol abuse and dependence; Z90.49 Acquired absence of other specified parts of digestive tract; Z91.19 Patient's noncompliance with other medical treatment and regimen; Z79.899 Other long term (current) drug therapy; Z59.0 Homelessness; Z68.34 Body mass index [BMI] 34.0-34.9, adult
CPT/HCPCS: 82962; 83036; 84436; 84439; 84443; 96372; 99285; G0480; J1815